=== PATIENT | female | born 1945 | race African-American/Black ===

== ENCOUNTER 2016-11-09 09:33 | Emergency (ER) | payer BC ==
[2016-11-09 09:36] VITALS: BMI 36.6
--- NOTE | 2016-11-09 10:12 | PDOC ---
History of Present Illness - General History Source: Patient Exam Limitations: No Limitations - History of Present Illness Initial Comments: 11/09/16 10:26 The patient is a 71 year old female, with a significant past medical history of diabetes, who presents to the emergency department complaining of left lower quadrant abdominal pain since earlier this morning. The patient describes her abdominal pain as a pressure similar to when you are having a baby. She reports intermittent abdominal tightness. Patient reports noting dark stool during her last bowel movement this morning. She reports mild ecchymosis to the LLQ. Patient reports her last colonoscopy was approximately 5-6 years ago, during which she was found to have polyps. Patient reports polyps were resolved during this time. The patient denies any nausea, vomiting, diarrhea, or constipation. The patient denies any dysuria, hematuria, frequency, or urgency. The patient denies any fever, chills, or dizziness. The patient denies any recent travel or sick contacts. Allergies: None reported. Past Surgical History: Cornea transplants Social History: Non-smoker. Denies alcohol or drug use. PCP: Dr. Castro <Franny Steele - Last Filed: 11/09/16 10:26> <Rubia Simental - Last Filed: 11/11/16 12:10> - General Chief Complaint: Pain Stated Complaint: ABD PAIN Time Seen by Provider: 11/09/16 09:42 Past History <Franny Steele - Last Filed: 11/09/16 10:26> - Past Medical History Other medical history: corneas transplant - Psycho/Social/Smoking Cessation Hx Suicidal Ideation: No Smoking History: Never smoked Information on smoking cessation initiated: No Hx Alcohol Use: No Drug/Substance Use Hx: No Substance Use Type: None <Rubia Simental - Last Filed: 11/11/16 12:10> - Past Medical History Allergies/Adverse Reactions: Allergies Allergy/AdvReac Type Severity Reaction Status Date / Time No Known Allergies Allergy Verified 11/09/16 09:36 Home Medications: Ambulatory Orders Brimonidine Tartrate/Timolol [Combigan 0.2%-0.5% Eye Drops] 1 drop OU BID Levofloxacin [Levaquin] 750 mg PO DAILY #10 tab 11/09/16 Metronidazole [Flagyl -] 500 mg PO TID #30 tablet 11/09/16 Prednisolone 1% Ophthalmic [Pred Forte 1% -] 1 drop OU QID 11/09/16 Review of Systems - Review of Systems Able to Perform ROS?: Yes Comments:: 11/09/16 10:26 GENERAL/CONSTITUTIONAL: No fever or chills. No weakness. HEAD, EYES, EARS, NOSE AND THROAT: No change in vision. No ear pain or discharge. No sore throat. CARDIOVASCULAR: No chest pain or shortness of breath. RESPIRATORY: No cough, wheezing, or hemoptysis. GASTROINTESTINAL: Yes: +left lower quadrant abdominal pain and ecchymosis. No nausea, vomiting, diarrhea or constipation. GENITOURINARY: No dysuria, frequency, or change in urination. NEUROLOGIC: No headache, vertigo, loss of consciousness, or change in strength/ sensation. MUSCULOSKELETAL: No joint or muscle swelling or pain. No neck or back pain. SKIN: No rash ENDOCRINE: No increased thirst. No abnormal weight change. HEMATOLOGIC/LYMPHATIC: No anemia, easy bleeding, or history of blood clots. ALLERGIC/IMMUNOLOGIC: No hives or skin allergy. <Steele,Giomilsy - Last Filed: 11/09/16 10:26> *Physical Exam - Vital Signs Last Vital Signs Temp Pulse Resp BP Pulse Ox 99 F 93 H 18 150/95 96 11/09/16 09:34 11/09/16 09:34 11/09/16 09:34 11/09/16 09:34 11/09/16 09:34 - Physical Exam Comments: 11/09/16 10:27 GENERAL: Awake, alert, and fully oriented, in no acute distress HEAD: No signs of trauma EYES: PERRLA, EOMI, sclera anicteric, conjunctiva clear ENT: Auricles normal inspection, hearing grossly normal, nares patent, oropharynx clear without exudates. Moist mucosa NECK: Normal ROM, supple, no lymphadenopathy, JVD, or masses LUNGS: Breath sounds equal, clear to auscultation bilaterally. No wheezes, and no crackles HEART: Regular rate and rhythm, normal S1 and S2, no murmurs, rubs or gallops ABDOMEN: Moderate tenderness to the LLQ with guarding, but no rebound. Mild ecchymosis to the LLQ. Normoactive bowel sounds. No masses EXTREMITIES: Normal range of motion, no edema. No clubbing or cyanosis. No cords, erythema, or tenderness NEUROLOGICAL: Cranial nerves II through XII grossly intact. Normal speech, normal gait SKIN: Warm, Dry, normal turgor, no rashes or lesions noted. <Franny Steele - Last Filed: 11/09/16 10:26> - Vital Signs Last Vital Signs Temp Pulse Resp BP Pulse Ox 99 F 93 H 18 150/95 96 11/09/16 09:34 11/09/16 09:34 11/09/16 09:34 11/09/16 09:34 11/09/16 09:34 <Rubia Simental - Last Filed: 11/11/16 12:10> ED Treatment Course - LABORATORY CBC & Chemistry Diagram: 11/09/16 10:42 11/09/16 10:42 <Rubia Simental - Last Filed: 11/11/16 12:10> Medical Decision Making - Medical Decision Making CT shows uncomplicated diverticulitis. Results d/w patient. She was able to tolerate PO challenge. Stable for DC home. <Rubia Simental - Last Filed: 11/11/16 12:10> *DC/Admit/Observation/Transfer - Attestations Scribe Attestion: 11/09/16 10:27 Documentation prepared by Franny Steele, acting as medical typist for Rubia Simental MD. <Franny Steele - Last Filed: 11/09/16 10:26> - Discharge Dispostion Admit: No <Rubia Simental - Last Filed: 11/11/16 12:10> Diagnosis at time of Disposition: Diverticulitis Qualifiers: Diverticulitis site: large intestine Diverticulitis bleeding: without bleeding Diverticulitis complication: without perforation or abscess Qualified Code(s): K57.32 - Diverticulitis of large intestine without perforation or abscess without bleeding - Discharge Dispostion Disposition: HOME Condition at time of disposition: Stable - Prescriptions Prescriptions: Metronidazole [Flagyl -] 500 mg PO TID #30 tablet Levofloxacin [Levaquin] 750 mg PO DAILY #10 tab - Referrals Referrals: Mehnaz Castro MD [Primary Care Provider] - - Patient Instructions Printed Discharge Instructions: DI for Diverticulitis
[2016-11-09] MEDS ORDERED: SODIUM CHLORIDE 1,000 ML IV STA (10:13)
[2016-11-09 10:51] LABS: BASOPHIL 0.6 % (0-2.0); EOSINOPHIL 1.9 % (0-4.5); MCH 29.6 pg (25.7-33.7); MCHC 32.7 g/dl (32.0-36.0); MEAN CELL VOLUME 90.6 fl (80-96); MEAN PLT VOLUME 7.5 fl (7.5-11.1); NEUTROPHILS 78.3 % (42.8-82.8); PLATELET COUNT 213 K/MM3 (134-434); RDW 14.8 % (11.6-15.6); WHITE BLOOD COUNT 10.4 K/mm3 (4.0-10.0)
[2016-11-09 10:59] LABS: URINE APPEARANCE CLEAR; URINE BILIRUBIN NEGATIVE (NEGATIVE); URINE COLOR YELLOW; URINE GLUCOSE (UA) NEGATIVE (NEGATIVE); URINE KETONE NEGATIVE (NEGATIVE); URINE LEUK ESTERASE NEGATIVE (NEGATIVE); URINE NITRITE NEGATIVE (NEGATIVE); URINE PROTEIN NEGATIVE (NEGATIVE); URINE UROBILINOGEN NEGATIVE E.U./dl (0.2-1.0)
[2016-11-09 11:06] LABS: URINE BLOOD 1+ (NEGATIVE)
[2016-11-09 11:08] LABS: URINE MUCUS RARE; URINE RBC 1 /hpf (0-3); URINE WBC 1 /hpf (3-5)
[2016-11-09 11:26] LABS: ALBUMIN 3.6 g/dl (3.4-5.0); ANION GAP 9 (8-16); CALCIUM 8.9 mg/dL (8.5-10.1); CO2 28 mmol/L (21-32); COCKROFT - GAULT 101.575; CREATININE 0.8 mg/dL (0.55-1.02); GLUCOSE,RANDOM 96 mg/dL (74-106); SGOT/AST 18 U/L (15-37); SGPT/ALT 21 U/L (12-78)
[2016-11-09 11:27] LABS: ALK PHOS 105 U/L (45-117); BILIRUBIN,TOTAL 0.8 mg/dL (0.2-1.0)
[2016-11-09 14:45] VITALS: TEMP 99.3
[2016-11-09] MEDS ORDERED: metroNIDAZOLE 500 MG TABLET PO ONE (16:16)
[2016-11-09] MEDS ORDERED: LEVOFLOXACIN 250 MG TABLET (FP) PO ONE (16:16)
[2016-11-09] MEDS ORDERED: metroNIDAZOLE 250 MG TABLET PO ONE (16:30)
[2016-11-09] MEDS ORDERED: LEVOFLOXACIN 500 MG TABLET (FP) ONE (16:33)
[2016-11-09] MEDS ORDERED: metroNIDAZOLE 250 MG TABLET ONE (16:33)
[2016-11-09] MEDS ORDERED: LEVOFLOXACIN 250 MG TABLET (FP) ONE (16:33)
[2016-11-09 16:52] VITALS: BP 150/91; PULSE 82
== END 2016-11-09 17:27 | disposition home or self-care (01) ==
LOC: JER 09:33
PROC: 3E0337Z Introduction of Electrolytic and Water Balance Substance into Peripheral Vein, Percutaneous Approach (ICD-10-PCS; principal; 2016-11-09)
DX: K57.32 Diverticulitis of large intestine without perforation or abscess without bleeding (principal)
CPT/HCPCS: 36415; 74177-TC; 80053; 81003; 81015; 82272; 83690; 85025; 87086; 99284-25; Q9967